=== PATIENT | male | born 1990 | race American Indian/Alaskan Native ===

== ENCOUNTER 2016-05-01 07:53 | Emergency (ER) | payer SELFPAY ==
[2016-05-01 08:03] VITALS: BP 148/102
[2016-05-01 08:52] LABS: Basophils % (Auto) 0.5 % (0.0-1.8); Eosinophils % (Auto) 1.2 % (0.0-4.3); Hematocrit 42.5 % (35.5-45.6); Hemoglobin 13.8 gm/dl (11.8-15.2); Mean Corpuscular HGB Conc 33 % (32-34); Mean Corpuscular Hemoglobin 27 pg (28-32); Mean Corpuscular Volume 82 fl (84-94); Platelet Count 371 K/mm3 (140-440); Red Blood Count 5.21 M/mm3 (3.65-5.03); Red Cell Distribution Width 13.3 % (13.2-15.2); White Blood Count 5.6 K/mm3 (4.5-11.0)
[2016-05-01 09:12] LABS: Bilirubin,Urine NEG (Negative); Blood,Urine NEG (Negative); Ketones,Urine NEG (Negative); Leukocyte Esterase,Urine TR (Negative); Mucus,Urine FEW /HPF; Nitrite,Urine NEG (Negative); Protein,Urine <15 mg/dL mg/dL (Negative); Urobilinogen,Urine < 2.0 mg/dL (<2.0)
[2016-05-01 09:14] LABS: Amylase 57 units/L (27-131); Anion Gap 16 mmol/L; Blood Urea Nitrogen 14 mg/dL (9-20); Calcium 8.7 mg/dL (8.4-10.2); Carbon Dioxide 26 mmol/L (22-30); Glucose 88 mg/dL (75-100); Potassium 3.9 mmol/L (3.6-5.0); Sodium 136 mmol/L (137-145)
--- NOTE | 2016-05-01 19:33 | ED Elopement Review ---
ED Pt Elopement review - Results review Lab results: Laboratory Tests 05/01/16 05/01/16 05/01/16 08:27 08:27 08:27 WBC 5.6 RBC 5.21 H Hgb 13.8 Hct 42.5 MCV 82 L MCH 27 L MCHC 33 RDW 13.3 Plt Count 371 Lymph % (Auto) 19.2 [place] % (Auto) 10.4 H Eos % (Auto) 1.2 Baso % (Auto) 0.5 Lymph # 1.1 L [place] # 0.6 Eos # 0.1 Baso # 0.0 Seg Neutrophils % 68.7 Seg Neutrophils # 3.9 Sodium 136 L Potassium 3.9 Chloride 98.0 Carbon Dioxide 26 Anion Gap 16 BUN 14 Creatinine 1.0 Estimated GFR > 60 BUN/Creatinine Ratio 14.00 Glucose 88 Calcium 8.7 Amylase 57 Lipase 18 Urine Color Urine Turbidity Urine pH Ur Specific [place] Urine Protein Urine Glucose (UA) Urine Ketones Urine Blood Urine Nitrite Urine Bilirubin Urine Urobilinogen Ur Leukocyte Esterase Urine WBC (Auto) Urine RBC (Auto) U Epithel Cells (Auto) Urine Mucus 05/01/16 08:36 WBC RBC Hgb Hct MCV MCH MCHC RDW Plt Count Lymph % (Auto) [place] % (Auto) Eos % (Auto) Baso % (Auto) Lymph # [place] # Eos # Baso # Seg Neutrophils % Seg Neutrophils # Sodium Potassium Chloride Carbon Dioxide Anion Gap BUN Creatinine Estimated GFR BUN/Creatinine Ratio Glucose Calcium Amylase Lipase Urine Color Yellow Urine Turbidity Clear Urine pH 6.0 Ur Specific [place] 1.025 Urine Protein <15 mg/dl Urine Glucose (UA) Neg Urine Ketones Neg Urine Blood Neg Urine Nitrite Neg Urine Bilirubin Neg Urine Urobilinogen < 2.0 Ur Leukocyte Esterase Tr Urine WBC (Auto) 15.0 H Urine RBC (Auto) 21.0 U Epithel Cells (Auto) < 1.0 Urine Mucus Few - Call Back decision Pt Call Back Decision: Pt to F/U with PMD (patient has a urinary tract infection )
== END 2016-05-01 08:27 | disposition left against medical advice (07) ==
LOC: ED 07:53
DX: R06.00 Dyspnea, unspecified (principal); R11.10 Vomiting, unspecified; R51 Headache; Z53.21 Procedure and treatment not carried out due to patient leaving prior to being seen by health care provider
CPT/HCPCS: 36415; 80048; 81001; 82150; 83690; 85025

== ENCOUNTER 2016-09-16 14:01 | Emergency (ER) | payer SELFPAY ==
[2016-09-16 14:45] VITALS: BP 133/89
[2016-09-16] MEDS ORDERED: DELTASONE PO ONE (15:17)
[2016-09-16] MEDS ORDERED: DUONEB 0.5 MG-3 MG/3 ML SOLN IH ONE (15:17)
--- NOTE | 2016-09-16 15:24 | Emergency Department Report ---
ED Asthma HPI - General Chief Complaint: Adult Asthma Stated Complaint: DIFFICULTY BREATHING Time Seen by Provider: 09/16/16 14:45 Source: patient, EMS Mode of arrival: Ambulatory Limitations: No Limitations - History of Present Illness MD Complaint: shortness of breath -: Sudden Time: 15:20 Asthma History: childhood onset, history of frequent attac Severity: moderate Context: recent URI, medication non-compliance Associated Symptoms: productive cough. denies: fever, chest pain, hemoptysis, leg edema, syncope Treatments Prior to Arrival: other (none) - Related Data Current Asthma Therapy: inhaled bronchodilator Home Medications Medication Instructions Recorded Confirmed Last Taken ALBUTEROL Inhaler 09/16/16 Unknown Previous Rx's Medication Instructions Recorded Last Taken Type Naproxen [Naprosyn] 500 mg PO BID #10 tablet 01/20/16 Unknown Rx ALBUTEROL Inhaler [ProAir HFA 2 puff IH QID PRN #1 inhalation 09/16/16 Unknown Rx Inhaler] Azithromycin [Zithromax Z-YAZMIN] 250 mg PO DAILY #6 tablet 09/16/16 Unknown Rx Benzonatate [Tessalon Perles] 100 mg PO Q8HR PRN #30 capsule 09/16/16 Unknown Rx predniSONE [Deltasone] 40 mg PO QDAY #10 tab 09/16/16 Unknown Rx Allergies Allergy/AdvReac Type Severity Reaction Status Date / Time No Known Allergies Allergy Unverified 01/20/16 08:48 ED Review of Systems ROS: Stated complaint: DIFFICULTY BREATHING Other details as noted in HPI Constitutional: malaise. denies: chills, diaphoresis, fever, weakness Eyes: denies: eye pain, eye discharge, vision change ENT: congestion Respiratory: shortness of breath Cardiovascular: denies: chest pain, palpitations Endocrine: no symptoms reported Gastrointestinal: denies: abdominal pain, nausea, diarrhea Genitourinary: denies: urgency, dysuria Musculoskeletal: denies: back pain, joint swelling, arthralgia Skin: denies: rash, lesions Neurological: denies: headache, weakness, paresthesias Psychiatric: denies: anxiety, depression Hematological/Lymphatic: denies: easy bleeding, easy bruising ED Past Medical Hx - Past Medical History Hx Asthma: Yes - Surgical History Past Surgical History?: No - Social History Smoking Status: Never Smoker Substance Use Type: Alcohol - Medications Home Medications: Home Medications Medication Instructions Recorded Confirmed Last Taken Type Naproxen [Naprosyn] 500 mg PO BID #10 tablet 01/20/16 Unknown Rx ALBUTEROL Inhaler 09/16/16 Unknown History ALBUTEROL Inhaler [ProAir HFA 2 puff IH QID PRN #1 inhalation 09/16/16 Unknown Rx Inhaler] Azithromycin [Zithromax Z-YAZMIN] 250 mg PO DAILY #6 tablet 09/16/16 Unknown Rx Benzonatate [Tessalon Perles] 100 mg PO Q8HR PRN #30 capsule 09/16/16 Unknown Rx predniSONE [Deltasone] 40 mg PO QDAY #10 tab 09/16/16 Unknown Rx ED Physical Exam - General Limitations: No Limitations General appearance: alert - Head Head exam: Present: atraumatic, normocephalic - Eye Eye exam: Present: normal appearance, PERRL, EOMI - ENT ENT exam: Present: mucous membranes moist, TM's normal bilaterally, normal external ear exam - Expanded ENT Exam Expanded Ear exam: Present: normal external inspection - Neck Neck exam: Present: normal inspection - Respiratory Respiratory exam: Present: chest wall tenderness. Absent: respiratory distress , wheezes, rales, rhonchi, stridor, accessory muscle use, decreased breath sounds, prolonged expiratory - Cardiovascular Cardiovascular Exam: Present: regular rate, normal rhythm. Absent: systolic murmur, diastolic murmur, rubs, gallop - GI/Abdominal GI/Abdominal exam: Present: soft, normal bowel sounds - Rectal Rectal exam: Present: deferred - Extremities Exam Extremities exam: Present: normal inspection - Back Exam Back exam: Present: normal inspection - Neurological Exam Neurological exam: Present: alert, altered, oriented X3, CN II-XII intact, normal gait, motor sensory deficit, reflexes normal - Psychiatric Psychiatric exam: Present: normal affect, normal mood - Skin Skin exam: Present: warm, dry, intact, normal color. Absent: rash ED Course Vital Signs 09/16/16 09/16/16 09/16/16 14:39 15:28 15:35 Temperature 97.9 F Pulse Rate 90 Pulse Rate [ 92 H 94 H Bilateral Throughout] Respiratory 18 Rate Respiratory 16 16 Rate [Bilateral Throughout] Blood Pressure 133/89 O2 Sat by Pulse 97 Oximetry ED Medical Decision Making - Radiology Data Radiology results: report reviewed, image reviewed no opacities no infiltrates - Medical Decision Making pt is a 25 y/o aam with hx of asthma, 10 yr pack hx smoker, who presents for shortness of breath wheezing x this am , out of albuterol inhaler , pt advises symptoms sudden onset but uri symptoms all week, symptoms are improved with po steroids and nebs in ECC , pt now ambulatory around ECC area without increased shortness of breath no wheezing no stridor no rhonchi no resp distress plan: dc to home refill albuterol inhaler, steroid, Zpack , pt will follow up with pcp as scheduled pt verbalize understanding and agreement with discharge plan. Critical care attestation.: If time is entered above; I have spent that time in minutes in the direct care of this critically ill patient, excluding procedure time. ED Disposition Clinical Impression: Asthma, Bronchitis Disposition: DC-01 TO HOME OR SELFCARE Is pt being admited?: No Does the pt Need Aspirin: No Condition: Good Instructions: Asthma (ED), Chronic Bronchitis (ED) Prescriptions: ALBUTEROL Inhaler [ProAir HFA Inhaler] 2 puff IH QID PRN #1 inhalation PRN Reason: Shortness Of Breath Azithromycin [Zithromax Z-YAZMIN] 250 mg PO DAILY #6 tablet Benzonatate [Tessalon Perles] 100 mg PO Q8HR PRN #30 capsule PRN Reason: Cough predniSONE [Deltasone] 40 mg PO QDAY #10 tab Forms: Work/School Release Form(ED) Time of Disposition: 16:27
--- NOTE | 2016-09-16 16:04 | XRay Report ---
CHEST 2 VIEWS INDICATION: Shortness of breath. COMPARISON: None similar at this institution. FINDINGS: PA and lateral chest radiographs demonstrate slight exaggerated cardiomediastinal silhouette. Clear lungs. Bilateral nipple piercing ornaments. Intact bones. CONCLUSION: Top normal heart size. Thank you for the opportunity to participate in this patient's care.
== END 2016-09-16 16:56 | disposition home or self-care (01) ==
LOC: ED 14:01
DX: J45.909 Unspecified asthma, uncomplicated (principal)
CPT/HCPCS: 71020; 94640; 99284; J7512

== ENCOUNTER 2018-04-04 23:36 | Emergency (ER) | payer SELFPAY ==
[2018-04-05 01:05] LABS: Basophils % (Auto) 0.5 % (0.0-1.8); Eosinophils # (Auto) 0.1 K/mm3 (0.0-0.4); Eosinophils % (Auto) 1.7 % (0.0-4.3); Hematocrit 46.3 % (35.5-45.6); Hemoglobin 15.1 gm/dl (11.8-15.2); Lymphocytes # (Auto) 2.4 K/mm3 (1.2-5.4); Lymphocytes % (Auto) 47.8 % (13.4-35.0); Mean Corpuscular HGB Conc 33 % (32-34); Mean Corpuscular Hemoglobin 27 pg (28-32); Mean Corpuscular Volume 84 fl (84-94); Monocytes # (Auto) 0.6 K/mm3 (0.0-0.8); Monocytes % (Auto) 11.8 % (0.0-7.3); Platelet Count 304 K/mm3 (140-440); Red Blood Count 5.53 M/mm3 (3.65-5.03); Red Cell Distribution Width 13.7 % (13.2-15.2)
[2018-04-05 01:13] LABS: BUN/Creatinine Ratio 14; Blood Urea Nitrogen 14 mg/dL (9-20); Calcium 9.3 mg/dL (8.4-10.2); Hemolysis Index 7
--- NOTE | 2018-04-05 01:22 | Emergency Department Report ---
ED Chest Pain HPI - General Chief Complaint: Chest Pain Stated Complaint: CHEST PAIN SOB Time Seen by Provider: 04/05/18 00:52 Source: patient, RN notes reviewed Mode of arrival: Ambulatory Limitations: No Limitations - History of Present Illness Initial Comments: This is a 27-year-old gentleman who is not known to this provider previously, who reports a possible medical history of asthma, occasional tobacco consumption, presenting with resolved left-sided chest wall discomfort. It started at 8:00. It radiated under the breast, lasted for a few minutes, did not radiate to the back, arms or neck. There is no shortness of breath, vomiting or diaphoresis. There is no leg pain or leg swelling. There is no personal or family history of DVT, pulmonary embolus or ischemic heart disease. The patient denies aspirin use recently and denies cocaine use. He has no complaints at this time. He is playing on a cellular phone at this time. MD Complaint: chest pain -: Sudden Onset: during rest Pain Location: left chest Severity: mild Consistency: now resolved Improves With: nothing Worsens With: nothing Aspirin use within the Past 7 Days: (0) No - Related Data On Oral Contraceptives: No Home Medications Medication Instructions Recorded Confirmed Last Taken ALBUTEROL Inhaler 09/16/16 Unknown Previous Rx's Medication Instructions Recorded Last Taken Type Naproxen [Naprosyn] 500 mg PO BID #10 tablet 01/20/16 Unknown Rx ALBUTEROL Inhaler (OR & NICU) 2 puff IH QID PRN #1 inhalation 09/16/16 Unknown Rx [ProAir HFA Inhaler] Azithromycin [Zithromax Z-YAZMIN] 250 mg PO DAILY #6 tablet 09/16/16 Unknown Rx Benzonatate [Tessalon Perles] 100 mg PO Q8HR PRN #30 capsule 09/16/16 Unknown Rx predniSONE [Deltasone] 40 mg PO QDAY #10 tab 09/16/16 Unknown Rx Allergies Allergy/AdvReac Type Severity Reaction Status Date / Time No Known Allergies Allergy Unverified 01/20/16 08:48 Heart Score - HEART Score History: Slightly suspicious EKG: Normal Age: < 45 Risk factors: No known risk factors Troponin: < normal limit HEART Score: 0 - Critical Actions Critical Actions: 0-3 pts:0.9-1.7%risk of adverse cardiac event.Candidate for discharge ED Review of Systems ROS: Stated complaint: CHEST PAIN SOB Other details as noted in HPI Constitutional: denies: fever Eyes: denies: vision change ENT: denies: epistaxis Cardiovascular: chest pain. denies: syncope Gastrointestinal: denies: vomiting Musculoskeletal: denies: back pain Neurological: denies: weakness ED Past Medical Hx - Past Medical History Previous Medical History?: Yes Hx Psychiatric Treatment: Yes (Anxiety) Hx Asthma: Yes - Surgical History Past Surgical History?: Yes - Social History Smoking Status: Current Every Day Smoker Substance Use Type: Alcohol - Medications Home Medications: Home Medications Medication Instructions Recorded Confirmed Last Taken Type Naproxen [Naprosyn] 500 mg PO BID #10 tablet 01/20/16 Unknown Rx ALBUTEROL Inhaler 09/16/16 Unknown History ALBUTEROL Inhaler (OR & NICU) 2 puff IH QID PRN #1 inhalation 09/16/16 Unknown Rx [ProAir HFA Inhaler] Azithromycin [Zithromax Z-YAZMIN] 250 mg PO DAILY #6 tablet 09/16/16 Unknown Rx Benzonatate [Tessalon Perles] 100 mg PO Q8HR PRN #30 capsule 09/16/16 Unknown Rx predniSONE [Deltasone] 40 mg PO QDAY #10 tab 09/16/16 Unknown Rx ED Physical Exam - General Limitations: No Limitations General appearance: alert, in no apparent distress - Head Head exam: Present: atraumatic, normocephalic - Eye Eye exam: Present: normal appearance, EOMI. Absent: nystagmus - ENT ENT exam: Present: normal exam, normal orophraynx, mucous membranes moist, normal external ear exam - Neck Neck exam: Present: normal inspection, full ROM. Absent: tenderness, meningismus - Respiratory Respiratory exam: Present: normal lung sounds bilaterally. Absent: respiratory distress - Cardiovascular Cardiovascular Exam: Present: regular rate, normal rhythm, normal heart sounds. Absent: bradycardia, tachycardia, irregular rhythm, systolic murmur, diastolic murmur, rubs, gallop - GI/Abdominal GI/Abdominal exam: Present: soft. Absent: distended, tenderness, guarding, rebound, rigid - Rectal Rectal exam: Present: deferred - Extremities Exam Extremities exam: Present: normal inspection, full ROM, normal capillary refill, other (2+ pulses noted in the bilateral upper, lower extremities. Compartments soft. No long bony tenderness. The pelvis is stable.). Absent: tenderness, pedal edema, joint swelling, calf tenderness - Back Exam Back exam: Present: normal inspection, full ROM. Absent: tenderness, CVA tenderness (R), paraspinal tenderness, vertebral tenderness - Neurological Exam Neurological exam: Present: alert, oriented X3, CN II-XII intact, normal gait, other (Extraocular movements intact. Tongue midline. No facial droop. Facial sensation intact to light touch in the V1, V2, V3 distribution bilaterally. 5 and 5 strength in 4 extremities.. Sensation is intact to light touch in 4 extremities.). Absent: motor sensory deficit - Psychiatric Psychiatric exam: Present: normal affect, normal mood - Skin Skin exam: Present: warm, dry, intact, normal color. Absent: rash ED Course Vital Signs 04/04/18 23:41 Temperature 98.5 F Pulse Rate 77 Respiratory 16 Rate Blood Pressure 170/89 O2 Sat by Pulse 99 Oximetry CORA score - Cora Score Age > 65: (0) No Aspirin use within the Past 7 Days: (0) No 3 or more CAD Risk Factors: (0) No 2 or more Angina events in past 24 hrs: (0) No Known CAD with more than 50% Stenosis: (0) No Elevated Cardiac Markers: (0) No ST Deviation Greater than 0.5mm: (0) No CORA Score: 0 ED Medical Decision Making - Lab Data Result diagrams: 04/05/18 00:24 04/05/18 00:24 Vital Signs 04/04/18 23:41 Temperature 98.5 F Pulse Rate 77 Respiratory 16 Rate Blood Pressure 170/89 O2 Sat by Pulse 99 Oximetry Labs 04/05/18 04/05/18 00:24 00:24 WBC 4.9 RBC 5.53 H Hgb 15.1 Hct 46.3 H MCV 84 MCH 27 L MCHC 33 RDW 13.7 Plt Count 304 Lymph % (Auto) 47.8 H [place] % (Auto) 11.8 H Eos % (Auto) 1.7 Baso % (Auto) 0.5 Lymph # 2.4 [place] # 0.6 Eos # 0.1 Baso # 0.0 Seg Neutrophils % 38.2 L Seg Neutrophils # 1.9 Sodium 139 Potassium 3.7 Chloride 100.2 Carbon Dioxide 29 Anion Gap 14 BUN 14 Creatinine 1.0 Estimated GFR > 60 BUN/Creatinine Ratio 14 Glucose 101 H Calcium 9.3 Troponin T < 0.010 - EKG Data -: EKG Interpreted by Me EKG shows normal: sinus rhythm Rate: normal - EKG Data Interpretation: unchanged when compared t 04/05/18 01:29 Sinus, 76 bpm, normal axis, normal intervals, atrial enlargement, persistent T wave inversion lead 3, abnormal EKG, not consistent with ST elevation myocardial infarction, appears unchanged from prior 01/20/2060 - Radiology Data Radiology results: image reviewed interpreted by me: X-ray of the chest, interpreted by me, no acute disease. - Medical Decision Making Differential diagnosis, including but not limited to: GERD, gastritis, costochondritis, anxiety, pneumonia Assessment and plan: 27-year-old gentleman with no risk factors for cardiovascular disease with the exception of tobacco consumption, no pulmonary embolus or DVT risk factors, low risk by well's criteria, risk by CORA score, low risk by heart score, perc negative, with resolved nonexertional chest pain. The patient is afebrile with reassuring vital signs and his current blood pressure is in the 140s. When this provider walks into the room to examine the patient, the patient is in no acute distress, laying on his stomach, and is noted to be playing with 2 different site of the phones. Subjective laboratory testing appears to be unremarkable, his EKG is unchanged from prior, at my bedside transthoracic echocardiogram demonstrated good global wall motion and contractility, with no obvious large pericardial effusion, and no evidence of a dilated right atrium. The patient is a low risk for major adverse cardiac event, and he is suitable to follow up with outpatient primary care doctor or instruction assistant principal for his chest pain. This is explained to the patient and to his mother, who verbalize understanding. Critical care attestation.: If time is entered above; I have spent that time in minutes in the direct care of this critically ill patient, excluding procedure time. ED Disposition Clinical Impression: History of chest pain Disposition: -01 TO HOME OR SELFCARE Is pt being admited?: No Does the pt Need Aspirin: No Condition: Good Instructions: Noncardiac Chest Pain (ED) Additional Instructions: Follow up with the primary care doctor or instruction assistant principal within the next 7-10 days. Return to the ER right away with lethargy, irritability, projectile vomit ing, change in mental status, confusion, inability to speak. Discontinue tobacco and cigarette consumption. Blood pressure was elevated today and should be followed up within the recommended timeframe. Referrals: [facility] [Provider Group] - 7-10 days [facility] [Provider Group] - 7-[address] [facility] [Provider Group] - 7-10 days
--- NOTE | 2018-04-05 01:57 | XRay Report ---
FINAL REPORT EXAM: XR CHEST ROUTINE 2V HISTORY: sob TECHNIQUE: PA and lateral views of the chest were obtained. PRIORS: None. FINDINGS: There are no focal consolidations to suggest pneumonia. No large pleural effusion. No pneumothorax. C ardiac silhouette is mildly enlarged. Mediastinal structures are unremarkable. No acute osseous abno rmality identified. IMPRESSION: Mild enlargement of the cardiac silhouette. No lobar consolidation, pleural effusion or pneumothorax.
[2018-04-05 02:28] VITALS: BP 136/84
== END 2018-04-05 01:50 | disposition home or self-care (01) ==
LOC: ED 23:36
DX: R07.89 Other chest pain (principal); J45.909 Unspecified asthma, uncomplicated; F41.9 Anxiety disorder, unspecified; F17.200 Nicotine dependence, unspecified, uncomplicated; Z79.899 Other long term (current) drug therapy
CPT/HCPCS: 36415; 71046; 80048; 84484; 85025; 93005; 93010

== ENCOUNTER 2019-07-27 11:54 | Emergency (ER) | payer SELFPAY ==
[2019-07-27 12:23] VITALS: BP 155/93
[2019-07-27] MEDS ORDERED: TETANUS,DIPH,PERTUSS(ACELL) VACCINE 0.5 ML SYRINGE IM ONE (13:06)
--- NOTE | 2019-07-27 13:15 | Emergency Department Report ---
ED Animal Bite HPI - General Chief Complaint: Animal Bite Stated Complaint: RT KNEE DOG BITE Time Seen by Provider: 07/27/19 13:06 Source: patient Mode of arrival: Ambulatory Limitations: No Limitations - History of Present Illness Initial Comments: 28-year-old -[place] male presents to the emergency room for right knee injury from dog bite that happened yesterday. 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 Patient reports he has swelling and mild pain. Patient is unaware of his tetanus status at this time. Patient states that he is getting in contact MD Complaint: animal bite Onset/Timin -: days(s) - Related Data Home Medications Medication Instructions Recorded Confirmed Last Taken ALBUTEROL Inhaler 09/16/16 Unknown Previous Rx's Medication Instructions Recorded Last Taken Type Naproxen [Naprosyn] 500 mg PO BID #10 tablet 01/20/16 Unknown Rx Albuterol INH(or & Nicu Only) 2 puff IH QID PRN #1 inhalation 09/16/16 Unknown Rx [ProAir HFA Inhaler] Azithromycin [Zithromax Z-YAZMIN] 250 mg PO DAILY #6 tablet 09/16/16 Unknown Rx Benzonatate [Tessalon Perles] 100 mg PO Q8HR PRN #30 capsule 09/16/16 Unknown Rx predniSONE [Deltasone] 40 mg PO QDAY #10 tab 09/16/16 Unknown Rx Amoxicillin/K Clav Tab [Augmentin 1 tab PO Q12HR 10 Days #20 tab 07/27/19 Unknown Rx 875 mg] Allergies Allergy/AdvReac Type Severity Reaction Status Date / Time No Known Allergies Allergy Unverified 01/20/16 08:48 ED Review of Systems ROS: Stated complaint: RT KNEE DOG BITE Other details as noted in HPI ED Past Medical Hx - Past Medical History Previous Medical History?: Yes Hx Psychiatric Treatment: Yes (Anxiety) Hx Asthma: Yes - Social History Smoking Status: Never Smoker Substance Use Type: None - Medications Home Medications: Home Medications Medication Instructions Recorded Confirmed Last Taken Type Naproxen [Naprosyn] 500 mg PO BID #10 tablet 01/20/16 Unknown Rx ALBUTEROL Inhaler 09/16/16 Unknown History Albuterol INH(or & Nicu Only) 2 puff IH QID PRN #1 inhalation 09/16/16 Unknown Rx [ProAir HFA Inhaler] Azithromycin [Zithromax Z-YAZMIN] 250 mg PO DAILY #6 tablet 09/16/16 Unknown Rx Benzonatate [Tessalon Perles] 100 mg PO Q8HR PRN #30 capsule 09/16/16 Unknown Rx predniSONE [Deltasone] 40 mg PO QDAY #10 tab 09/16/16 Unknown Rx Amoxicillin/K Clav Tab [Augmentin 1 tab PO Q12HR 10 Days #20 tab 07/27/19 Unknown Rx 875 mg] ED Physical Exam - General Limitations: No Limitations General appearance: alert, in no apparent distress - Head Head exam: Present: atraumatic, normocephalic - Cardiovascular Cardiovascular Exam: Present: regular rate, normal rhythm. Absent: systolic murmur, diastolic murmur, rubs, gallop - Expanded Lower Extremity Exam Right Hip exam: Present: normal inspection, full ROM Upper Leg exam: Present: normal inspection, full ROM Knee exam: Present: full ROM, tenderness, swelling, abrasion, erythema Lower Leg exam: Present: normal inspection, full ROM Neuro vascular tendon exam: Present: no vascular compromise Gait: Positive: observed and normal - Neurological Exam Neurological exam: Present: alert, oriented X3, normal gait - Psychiatric Psychiatric exam: Present: normal affect, normal mood - Skin Skin exam: Present: warm, dry, intact, normal color. Absent: rash ED Course Vital Signs 07/27/19 12:20 Temperature 98.4 F Pulse Rate 64 Respiratory 16 Rate Blood Pressure 155/93 O2 Sat by Pulse 97 Oximetry Critical care attestation.: If time is entered above; I have spent that time in minutes in the direct care of this critically ill patient, excluding procedure time. ED Disposition Clinical Impression: Open wound of left knee due to animal bite Disposition: DC-01 TO HOME OR SELFCARE Is pt being admited?: No Does the pt Need Aspirin: No Condition: Stable Additional Instructions: Please find status of rabies report for dog that had bitten you. Return back to the emergency room if dog has not received his vaccines for rabies. As you may need to have the vaccine and immunoglobulin. Please complete the Augmentin as prescribed. Keep wound clean and dry take Tylenol or Motrin for pain management. Animal control number is [phone]. Prescriptions: Amoxicillin/K Clav Tab [Augmentin 875 mg] 1 tab PO Q12HR 10 Days #20 tab ED Medical Decision Making - Medical Decision Making 28-year-old -[place] male presents to the emergency room for right knee injury from dog bite that happened yesterday. 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 Patient reports he has swelling and mild pain. Patient is unaware of his tetanus status at this time. Patient states that he is getting in contact. Discussed with patient if dog does not have vaccine for rabies he needs to return back tomorrow to get his rabies vaccine and immunoglobulin. Informed patient he needs to contact animal control as they will go out to the home and gather information to determine if patient needs a rabies vaccination. Phone number will be added to patient discharge summary. Also discussed with patient that he needs to complete his antibiotics of Augmentin and he can take [id number] ibuprofen for pain management. Also instructed patient to increase his fluid intake. Instructed patient to keep his wound clean and dry.
== END 2019-07-27 14:33 | disposition home or self-care (01) ==
LOC: ED 11:54
DX: S81.051A Open bite, right knee, initial encounter (principal); F41.9 Anxiety disorder, unspecified; J45.909 Unspecified asthma, uncomplicated; Z79.899 Other long term (current) drug therapy; W54.0XXA Bitten by dog, initial encounter; Y93.89 Activity, other specified; Y92.89 Other specified places as the place of occurrence of the external cause; Y99.0 Civilian activity done for income or pay
CPT/HCPCS: 90471; 90715; 99282